=== PATIENT | female | born 1985 | race Hispanic/Latino ===

== ENCOUNTER 2019-05-29 21:58 | Emergency (ER) | payer OTHER, SELFPAY ==
[2019-05-29] MEDS ORDERED: NA CHLORIDE 0.9% 1,000 ML ONE (22:39)
[2019-05-29 23:04] LABS: Absolute Lymphocytes (CBC) 1.2 K/uL (0.7-4.9); Basophils % 0.5 % (0-1.3); Hematocrit 40.3 % (36.0-45.0); MPV 9.7 fL (7.6-11.3); RBC Red Blood Cell Count 4.79 M/uL (3.86-4.86)
[2019-05-29 23:27] LABS: ALT/SGPT 23 U/L (12-78); AST/SGOT 19 U/L (15-37); Albumin 3.8 g/dL (3.4-5.0); Alkaline Phosphatase 82 U/L (45-117); BUN Blood Urea Nitrogen 8 mg/dL (7-18); Bicarbonate 24 mmol/L (21-32); Bilirubin Direct < 0.1 mg/dL (0-0.2); Bilirubin Total 0.2 mg/dL (0.2-1.0); Glucose Level 114 mg/dL (74-106); Protein, Total 7.8 g/dL (6.4-8.2); Sodium Level 143 mmol/L (136-145)
[2019-05-29 23:35] LABS: Protime INR 0.99
--- NOTE | 2019-05-29 23:40 | ER ---
Nurse's Notes [facility] Name: Susi Ribeiro Age: 34 yrs Sex: Female : 1985 Arrival Date: 05/29/2019 Time: 21:59 Bed 20 Private MD: Diagnosis: Alcohol abuse with intoxication Presentation: 05/28 22:00 Chief complaint: EMS states: Pt was drinking since lunch time with her oldest son in an apartment in [place]. EMS was tones because they said that she was unresponsive and vomiting, Per EMS Pt was initially unresponsive but was awake during the trip to ER. Coronavirus screen: The patient has NOT traveled to a country currently being monitored by the [facility] within the last 14 days. Ebola Screen: Patient negative for fever greater than or equal to 101.5 degrees Fahrenheit, and additional compatible Ebola Virus Disease symptoms Patient denies exposure to infectious person. Initial Sepsis Screen: Does the patient meet any 2 criteria? HR > 90 bpm. Does the patient have a suspected source of infection? No. Patient's initial sepsis screen is negative. Risk Assessment: Do you want to hurt yourself or someone else? Patient reports no desire to harm self or others. 22:00 Method Of Arrival: EMS: [facility] 22:00 Acuity: SMIRAN 3 22:07 Onset of symptoms was May 29, 2019. 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 - Social history:: Smoking status: Patient reports the use of cigarette tobacco products, Patient uses alcohol, Patient/guardian denies using street drugs, Patient/guardian denies using IV drugs, The patient lives with family. - Family history:: not pertinent. Screenin:07 Abuse screen: Denies threats or abuse. Denies injuries from another. Nutritional screening: No deficits noted. Tuberculosis screening: No symptoms or risk factors identified. Fall Risk None identified. Assessment: 05/27 23:00 Reassessment:. 05/28 22:05 General: Appears in no apparent distress. Behavior is calm, cooperative, appropriate wh for age, Smells of alcohol. Pain: Denies pain. Neuro: Level of Consciousness is awake, alert, obeys commands, Oriented to person, place, time, situation, Appropriate for age. Cardiovascular: Heart tones S1 S2. Respiratory: Airway is patent Respiratory effort is even, unlabored, Respiratory pattern is regular, symmetrical, Breath sounds are clear bilaterally. GI: Abdomen is flat, non-distended, Abd is soft and non tender X 4 quads. Reports vomiting. : No signs and/or symptoms were reported regarding the genitourinary system. EENT: No signs and/or symptoms were reported regarding the EENT system. Derm: Skin is intact, is healthy with good turgor, Skin is pink, warm \T\ dry. normal. Derm: Skin Skin is. Musculoskeletal: Circulation, motion, and sensation intact. 05/29 00:00 Reassessment: Patient appears in no apparent distress at this time. No changes from previously documented assessment. Patient and/or family updated on plan of care and expected duration. Pain level reassessed. Patient is alert, oriented x 3, equal unlabored respirations, skin warm/dry/pink. Patient states feeling better. Vital Signs: 05/28 22:00 BP 155 / 113; Pulse 100; Resp 18; Temp 97.2; Pulse Ox 99% ; Weight 65.77 kg; Height 5 wh ft. 2 in. (157.48 cm); 05/29 00:00 BP 138 / 98; Pulse 94; Resp 18; Pulse Ox 99% ; wh 05/28 22:00 Body Mass Index 26.52 (65.77 kg, 157.48 cm) ED Course: 05/28 21:59 Patient arrived in ED. ds1 21:59 Lanie Alejo is Primary Nurse. wh 22:04 Triage completed. wh 22:07 Arm band placed on right wrist. wh 22:08 Patient has correct armband on for positive identification. Placed in gown. Bed in low wh position. Call light in reach. Side rails up X 1. Pulse ox on. NIBP on. 22:09 Erum Garza MD is Attending Physician. ma2 22:20 Bath given. Linen changed. mb4 22:20 Assisted with dressing. mb4 22:20 Door closed. Visitors limited. Warm blanket given. Head of bed elevated. mb4 22:45 Initial lab(s) drawn, by me, sent to lab. lp1 22:45 Inserted saline lock: 22 gauge in left antecubital area, using aseptic technique. lp1 23:01 IV is patent, with good blood return, Flushed. mb4 23:23 Lab(s) recollected, by me, sent to lab. IV Flushed. mb4 03 00:00 No provider procedures requiring assistance completed. IV discontinued, intact, bleeding controlled, No redness/swelling at site. Administered Medications: 03 22:57 Drug: NS 0.9% 1000 ml Route: IV; Rate: 1 bolus; Site: left antecubital; 05/29 00:53 Follow up: Response: No adverse reaction; IV Status: Completed infusion Outcome: 05/28 23:39 Discharge ordered by . ma2 05/29 00:00 Discharged to home ambulatory. Condition: stable Discharge instructions given to patient, family, Instructed on discharge instructions, follow up and referral plans. POC Demonstrated understanding of instructions, follow-up care, POC 00:08 Patient left the ED. Signatures: Helena Zhang 1 Millie Bowers, RN RN lp1 Lanie Alejo Erum Garza MD MD ma2 Camilla Pham mb4 Corrections: (The following items were deleted from the chart) 05/28 23:01 22:45 Initial lab(s) drawn, by me, sent to lab. lp1 lp1
--- NOTE | 2019-05-29 23:40 | EDPHYS ---
Physician Documentation [facility] Name: Susi Ribeiro Age: 34 yrs Sex: Female : 1985 Arrival Date: 05/29/2019 Time: 21:59 Bed 20 Private MD: ED Physician Erum Garza HPI: 05/28 23:17 This 34 yrs old Female presents to ER via EMS with complaints of Intoxication. ma2 23:17 Onset: The symptoms/episode began/occurred gradually, 1 day(s) ago. Severity of ma2 symptoms: At their worst the symptoms were mild in the emergency department the symptoms are unchanged. The patient has not experienced similar symptoms in the past. 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 - Social history:: Smoking status: Patient reports the use of cigarette tobacco products, Patient uses alcohol, Patient/guardian denies using street drugs, Patient/guardian denies using IV drugs, The patient lives with family. - Family history:: not pertinent. ROS: 23:17 Eyes: Negative for injury, pain, redness, and discharge. ma2 23:17 All other systems are negative. Exam: 23:17 Constitutional: This is a well developed, well nourished patient who is awake, alert, ma2 and in no acute distress. ENT: Nares patent. No nasal discharge, no septal abnormalities noted. Tympanic membranes are normal and external auditory canals are clear. Oropharynx with no redness, swelling, or masses, exudates, or evidence of obstruction, uvula midline. Mucous membranes moist. Neck: Trachea midline, no thyromegaly or masses palpated, and no cervical lymphadenopathy. Supple, full range of motion without nuchal rigidity, or vertebral point tenderness. No Meningismus. Chest/axilla: Normal chest wall appearance and motion. Nontender with no deformity. No lesions are appreciated. Cardiovascular: Regular rate and rhythm with a normal S1 and S2. No gallops, murmurs, or rubs. Normal PMI, no JVD. No pulse deficits. Respiratory: Lungs have equal breath sounds bilaterally, clear to auscultation and percussion. No rales, rhonchi or wheezes noted. No increased work of breathing, no retractions or nasal flaring. Abdomen/GI: Soft, non-tender, with normal bowel sounds. No distension or tympany. No guarding or rebound. No evidence of tenderness throughout. MS/ Extremity: Pulses equal, no cyanosis. Neurovascular intact. Full, normal range of motion. Neuro: Awake and alert, GCS 15, oriented to person, place, time, and situation. Cranial nerves II-XII grossly intact. Motor strength 5/5 in all extremities. Sensory grossly intact. Cerebellar exam normal. Normal gait. Vital Signs: 22:00 BP 155 / 113; Pulse 100; Resp 18; Temp 97.2; Pulse Ox 99% ; Weight 65.77 kg; Height 5 wh ft. 2 in. (157.48 cm); 05/29 00:00 BP 138 / 98; Pulse 94; Resp 18; Pulse Ox 99% ; wh 05/28 22:00 Body Mass Index 26.52 (65.77 kg, 157.48 cm) wh MDM: 05/28 22:[address] [facility] 23:[address] [facility] 23:39 Data reviewed: vital signs, nurses notes. Counseling: I had a detailed discussion with ma2 the patient and/or guardian regarding: the historical points, exam findings, and any diagnostic results supporting the discharge/admit diagnosis, the presence of at least one elevated blood pressure reading (>120/80) during this emergency department visit, the need for outpatient follow up. Response to treatment: the patient's symptoms have markedly improved after treatment. 05/28 22:09 Order name: Acetaminophen; Complete Time: 23:38 [facility] 05/28 22:09 Order name: Basic Metabolic Panel; Complete Time: 23:38 [facility] 05/28 22:09 Order name: CBC with Diff; Complete Time: 23:38 co2 05/28 22:09 Order name: ETOH Level; Complete Time: 23:38 [facility] 05/28 22:09 Order name: Hepatic Function; Complete Time: 23:38 [facility] 05/28 22:09 Order name: PT-INR; Complete Time: 23:38 [facility] 05/28 22:09 Order name: Urine Test (obtain specimen); Complete Time: 23:43 ma2 05/28 22:09 Order name: Ptt, Activated; Complete Time: 23:38 ma2 05/28 22:09 Order name: Salicylate; Complete Time: 23:38 ma2 05/28 22:09 Order name: Urine Drug Screen [facility] 05/28 22:09 Order name: EKG; Complete Time: 22:10 ma2 05/28 22:09 Order name: EKG - Nurse/Tech; Complete Time: 22:55 co2 05/28 22:09 Order name: IV Saline Lock; Complete Time: 22:55 ma2 05/28 22:09 Order name: Labs collected and sent; Complete Time: 22:55 ma2 05/28 22:09 Order name: Urine Dipstick-Ancillary (obtain specimen); Complete Time: 23:43 ma2 Administered Medications: 22:57 Drug: NS 0.9% 1000 ml Route: IV; Rate: 1 bolus; Site: left antecubital; 05/29 00:53 Follow up: Response: No adverse reaction; IV Status: Completed infusion Disposition: 05/29/19 23:39 Discharged to Home. Impression: Alcohol abuse with intoxication. - Condition is Stable. - Discharge Instructions: Alcohol Intoxication, [id number]. - Medication Reconciliation Form, Thank You Letter, Antibiotic Education, Prescription Opioid Use form. - Follow up: Private Physician; When: Tomorrow; Reason: Continuance of care. Signatures: Dispatcher [employer] Lanie Mao Erum Garza MD MD ma2 Corrections: (The following items were deleted from the chart) 00:08 05/28 23:39 05/29/2019 23:39 Discharged to Home. Impression: Alcohol abuse with wh intoxication. Condition is Stable. Forms are Medication Reconciliation Form, Thank You Letter, Antibiotic Education, Prescription Opioid Use. Follow up: Private Physician; When: Tomorrow; Reason: Continuance of care. ma2
[2019-05-30 00:50] VITALS: BP 155/113; TEMP 97.2; O2SAT 99
[2019-05-30 01:10] LABS: Barbiturates NEGATIVE (NEGATIVE); Benzodiazepines NEGATIVE (NEGATIVE); Cocaine NEGATIVE (NEGATIVE); METHAMPHETAM NEGATIVE (NEGATIVE); Methadone NEGATIVE (NEGATIVE); Opiates NEGATIVE (NEGATIVE); Phencyclidine NEGATIVE (NEGATIVE); THC Cannibis NEGATIVE (NEGATIVE)
--- NOTE | 2019-05-30 07:29 | EKG ---
Test Date: 2019-05-29 Test Time: 22:03:31 It Operations Specialist: CARRIE MEASUREMENT RESULTS: Intervals: Rate: 96 WI: 146 QRSD: 72 QT: 362 QTc: 457 [place]: P: 51 WI: 146 QRS: 35 T: -32 INTERPRETIVE STATEMENTS: Normal sinus rhythm T wave abnormality, consider anterolateral ischemia Abnormal ECG No previous ECG available for comparison Electronically Signed On 05-30-19 07:28:41 CDT by Klaus Wooten
== END 2019-05-30 00:08 | disposition home or self-care (01) ==
LOC: ER 21:58
DX: F10.129 Alcohol abuse with intoxication, unspecified (principal); F17.210 Nicotine dependence, cigarettes, uncomplicated
CPT/HCPCS: 36415; 80048; 80076; 80307; 80320; 80329; 85025; 85610; 85730; 93005; 96360; 96361; 99284; J7030